=== PATIENT | female | born 1980 | race Caucasian/White ===

== ENCOUNTER 2023-06-17 18:12 | Emergency (ER) | payer SELFPAY ==
[~2023-06-17] VITALS: Ht 170.2 cm; Wt 100.0 kg
[2023-06-17 18:23] VITALS: BP 136/100; PULSE 100; RESP 18; TEMP 98.3; O2SAT 99
[2023-06-17] MEDS ORDERED: ACET-2708 MT (20:24)
== END 2023-06-18 02:12 | disposition home or self-care (01) ==
LOC: ER 18:12
DX: S93.401A Sprain of unspecified ligament of right ankle, initial encounter (principal); S70.311A Abrasion, right thigh, initial encounter; G43.909 Migraine, unspecified, not intractable, without status migrainosus; W50.2XXA Accidental twist by another person, initial encounter; Y93.89 Activity, other specified; Y92.89 Other specified places as the place of occurrence of the external cause; Y99.8 Other external cause status
CPT/HCPCS: 73552; 73560; 73590; 99284